=== PATIENT | male | born 1940 | race Two or more races ===

== ENCOUNTER 2019-04-28 06:09 | Emergency (ER) | payer OTHER ==
[~2019-04-28] VITALS: Ht 167.6 cm; Wt 75.3 kg
[2019-04-28] MEDS ORDERED: LISINOPRIL20 MG (06:21)
[2019-04-28] MEDS ORDERED: METFORMIN HCL500 M2 (06:21)
== END 2019-04-28 10:44 | disposition home or self-care (01) ==
LOC: ER 06:09
DX: S40.012A Contusion of left shoulder, initial encounter (principal); S40.022A Contusion of left upper arm, initial encounter; W10.8XXA Fall (on) (from) other stairs and steps, initial encounter; Y93.89 Activity, other specified; Y92.89 Other specified places as the place of occurrence of the external cause; Y99.8 Other external cause status

== ENCOUNTER → 2023-04-21 | Day surgery (SDC) | payer OTHER ==
[~2023-04-21] VITALS: Ht 167.6 cm; Wt 59.0 kg
[~2023-04-21] MED LIST: LISINOPRIL20 MG; METFORMIN HCL500 M2
== END | disposition home or self-care (01) ==
LOC: ADM 04-16 08:45 → CIR.AMB 07:04
PROVIDERS: ATTEND Surgery
DX: K40.91 Unilateral inguinal hernia, without obstruction or gangrene, recurrent (principal); Z20.822 Contact with and (suspected) exposure to COVID-19; I10 Essential (primary) hypertension
CPT/HCPCS: 49651; C1781